=== PATIENT | female | born 1990 | race Caucasian/White ===

== ENCOUNTER 2023-02-11 10:48 | Outpatient (CLI) | payer BC, SELFPAY | END 2023-02-11 10:49 | disposition home or self-care (01) | LOC: LONREF 10:49 | PROVIDERS: PCP Nurse Practitioner Family; Visit Provider Nurse Practitioner Family | DX: Z00.00 Encounter for general adult medical examination without abnormal findings (principal); R53.82 Chronic fatigue, unspecified; Z13.6 Encounter for screening for cardiovascular disorders | CPT/HCPCS: 80061 ==

== ENCOUNTER 2023-08-06 21:51 | Emergency (ER) | payer BC, SELFPAY ==
[2023-08-06 21:54] VITALS: BP 151/94; PULSE 111; RESP 18; TEMP 37.2; O2SAT 100; BMI 31.6
[2023-08-06 22:03] VITALS: O2SAT 100
--- NOTE | 2023-08-06 22:30 | ED_ITS ---
HPI - General Adult General Chief complaint: Fever Stated complaint: Fever, Chest pain Time Seen by Provider: 08/06/23 22:23 History of Present Illness HPI narrative: Patient is a 33-year-old woman who comes in today with 2 day history of nonproductive cough general malaise and body aches. She also has pharyngitis. Her kids have croup. Patient has oxygen saturation of 100%. She has no chest pain shortness a breath orthopnea or PND. No other significant symptoms are noted. Related Data Home Medications Medication Instructions Recorded Confirmed nitrofurantoin 1 cap PO BID 02/11/23 02/11/23 monohydrate/macrocrystals 100 mg capsule Previous Rx's Medication Instructions Recorded sumatriptan succinate 100 mg See Rx Instructions PO .COMPLEX #9 02/11/23 tablet (Imitrex) tabs valacyclovir 1 gram tablet 2,000 mg (2 x 1 gram) PO BID 1 day 02/11/23 (Valtrex) #12 tabs penicillin V potassium 500 mg 1,000 mg (2 x 500 mg) PO BID #20 04/13/23 tablet tabs Allergies Allergy/AdvReac Type Severity Reaction Status Date / Time No Known Allergies Allergy Verified 02/11/23 10:11 Review of Systems Status of ROS: Reports: 10 or more systems reviewed and unremarkable except as noted in History and below [facility] Medical History Screening for lipid disorders ?Z13.220 - Encounter for screening for lipoid disorders (ICD-10) History of retained placenta (2017) ?Z87.59 - Personal history of other complications of , childbirth and the puerperium (ICD-10) History of anemia (2017) ?Z86.2 - Personal history of diseases of the blood and blood-forming organs and certain disorders involving the immune mechanism (ICD-10) ?Z87.59 - Personal history of other complications of , childbirth and the puerperium (ICD-10) History of blood transfusion (2017) ?Z92.89 - Personal history of other medical treatment (ICD-10) Recurrent oral herpes simplex ?B00.2 - Herpesviral gingivostomatitis and pharyngotonsillitis (ICD-10) Surgical History History of dilation and curettage (08/24/16) ?Z98.890 - Other specified postprocedural states (ICD-10) History of appendectomy (2007) ?Z90.49 - Acquired absence of other specified parts of digestive tract (ICD- 10) Family History Grandmother Atrial fibrillation Aunt Breast cancer Maternal Grandmother Cataract Diabetes High blood pressure Uncle Diabetes Maternal Grandfather Prostate cancer Other Heart disease Thyroid disease Social History Narrative: What is your current living situation?: I presently have a place to live Problems where you live: no known problems In the past 12 months, utilities in danger of being shut off: no In past 12 months, lack of transportation kept you from medical appts, meetings, work, or getting things needed for daily living: no In the past 12 mos, have been you worried that your food would run out before you had money to buy more?: never true In the past 12 mos, the food you bought just didn't last and you didn't have money to buy more?: never true Are you following a diet prescribed by a doctor: No Are you following a special diet: No Do you want help finding or keeping work or a job: I do not need or want help Physical activity type: none Smoking Status: Never smoker How often do you have a drink containing alcohol: monthly or less How many standard drinks containing alcohol do you have on a typical day: 1 or 2 AUDIT-C Alcohol total score: 1 Non-prescribed substance use: denies use Caffeine: Yes Are you now , , , , never or living with a partner: In a typical week, how many times do you talk on the telephone with family, friends, or neighbors: twice per week How often do you get together with friends or relatives?: once per week How often do you attend pentecostal or mosque services?: 4 or more times per year Do you belong to any clubs or organizations such as pentecostal groups unions, fraternal or athletic groups, or school groups?: yes Social isolation score (0-1 are the most socially isolated patients): 4 Within the last year, have you been humiliated or emotionally abused in other ways by your partner or ex-partner: no Within the last year, have you been afraid of your partner or ex-partner: no Within the last year, have you been raped or forced to have any kind of sexual activity by your partner or ex-partner: no Within the last year, have you been kicked, hit, slapped, or otherwise physically hurt by your partner or ex-partner: no HARK total score: 0 How often does anyone, including family, friends and others, physically hurt you : never How often does anyone, including family, friends and others, insult or talk down to you: never How often does anyone, including family, friends and others, threaten you with harm: never How often does anyone, including family, friends and others, scream or curse at you: never Firearms in home: no Do you need help with ADLs: I don't need any help Due to a physical, mental, or emotional condition, do you have difficulty doing errands alone such as visiting a doctor's office or shopping: No Little interest or pleasure in doing things: not at all Feeling down, depressed, or hopeless: not at all Do you think of yourself as: straight/heterosexual Gender Identity: male and female Are you currently sexually active: Yes In the past 12 months, how many sex partners have you had: one What kind of protection do you use against STDs: none Are you using contraception or practicing any form of control: Yes service: No Exam Narrative: Exam Narrative: EXAM GENERAL: Patient appears comfortable and well. EYES: No scleral icterus. ENT: Tympanic membranes and oropharynx normal. THYROID: no thyroid nodules or thyromegaly. LYMPH: No supraclavicular or cervical lymphadenopathy. SKIN: Visible skin seen during exam normal or with benign process only. EXT: No dependent lower extremity pedal edema. HEART: Regular rate and rhythm with no murmurs, rubs, or gallops. LUNGS: Clear to auscultation bilaterally with no crackles or wheezes. ABD: Soft, non tender, non distended. PSYCH: Good eye contact, speech is not pressured. Const: Vital Signs, click to edit/add: Vital Signs - 24 hr 08/06/23 21:54 08/06/23 22:03 Temperature 99.0 F Pulse Rate [Left P ulse Oximeter] 111 H Respiratory Rate 18 Blood Pressure [Ri ght Upper Arm] 151/94 H Pulse Oximetry 100 100 Oxygen Delivery Me thod Room Air Room Air Course Vital Signs Vital signs: Initial Vital Signs Temperature 99.0 F 08/06/23 21:54 Temperature Source Temporal Artery Scan 08/06/23 21:54 Pulse Rate 111 H 08/06/23 21:54 Pulse Rhythm Regular 08/06/23 21:54 Respiratory Rate 18 08/06/23 21:54 Blood Pressure 151/94 H 08/06/23 21:54 Blood Pressure Mean 113 H 08/06/23 21:54 Blood Pressure Position Sitting 08/06/23 21:54 Pulse Oximetry 100 08/06/23 21:54 Oxygen Delivery Method Room Air 08/06/23 21:54 Vital Signs Temperature 99.0 F 08/06/23 21:54 Pulse Rate 111 H 08/06/23 21:54 Respiratory Rate 18 08/06/23 21:54 Blood Pressure 151/94 H 08/06/23 21:54 Pulse Oximetry 100 08/06/23 21:54 Oxygen Delivery Method Room Air 08/06/23 21:54 Temperature 99.0 F 08/06/23 21:54 Pulse Rate 111 H 08/06/23 21:54 Respiratory Rate 18 08/06/23 21:54 Blood Pressure 151/94 H 08/06/23 21:54 Pulse Oximetry 100 08/06/23 22:03 Oxygen Delivery Method Room Air 08/06/23 22:03 Medical Decision Making [facility] Narrative Medical decision making narrative: Patient is a 33-year-old woman who presents with cough and congestion. Rapid strep in viral swabs are pending. She has a normal exam. This time reassurance is offered and likely etiology viral versus strep throat. Will contact her with her results. Otherwise will follow Tylenol Motrin rest and fluids. Differential Diagnosis Differential Diagnosis: Viral syndrome strep throat pneumonia Discharge Plan Discharge Clinical Impression: Acute viral syndrome Patient Disposition: Home, Self-Care Condition: Stable Instructions: Viral Syndrome (ED) Additional Instructions: Tylenol Motrin Rest Fluids Will contact you based on your lab testing. Activity Level: No Restrictions Discharge Diet: Regular Prescriptions: No Action nitrofurantoin monohyd/m-cryst 100 mg capsule 1 cap PO BID sumatriptan succinate [Imitrex] 100 mg tablet See Rx Instructions PO .COMPLEX Qty: 9 0RF Rx Instructions: take 1 tab at onset of headache; if no relief, may repeat 1 tab after at least 2 hrs; max = 2 tabs/24 hrs PO valacyclovir [Valtrex] 1 gram tablet 2,000 mg PO BID 1 Days Qty: 12 3RF Rx Instructions: take two tabs in the morning and then two tablets in 12 hours as needed. penicillin V potassium 500 mg tablet 1,000 mg PO BID Qty: 20 0RF Follow Up/Referrals: Cora Bolton CNP [Primary Care Provider] - Stand Alone Forms: MyHealth Info Instructions
[2023-08-06 22:43] LABS: PCR FLU A Negative PCR FLU A (Negative); PCR FLU B Negative PCR FLU B (Negative); PCR RSV Negative PCR RSV (Negative); SARS PCR* Negative SARS-CoV-2 (Negative)
[2023-08-06 23:14] LABS: Strep A DNA Probe* NOT DETECTED (Not Detectd)
--- NOTE | 2023-08-07 00:23 | ED.NURSE ---
called pt, informed them tests were negative for covid/influenza/RSV, and strep.
== END 2023-08-06 22:53 | disposition home or self-care (01) ==
PROVIDERS: Emergency Provider Internal Medicine; PCP Nurse Practitioner Family
DX: B34.9 Viral infection, unspecified (principal)
CPT/HCPCS: 87631; 87651; 99283

== ENCOUNTER 2023-12-29 09:45 | Outpatient (CLI) | payer BC, SELFPAY ==
--- NOTE | 2023-12-29 10:00 | CRLHL7_ITS ---
For Patients: As a result of the Cures Act, medical imaging exams and procedure reports are released immediately into your electronic medical record. You may view this report before your referring provider. If you have questions, please contact your health care provider. Indication: ANOSMIA. HEADACHE Technique: Performed without IV contrast Comparison: None available Findings: Frontal sinuses: Clear. Ethmoid sinuses: Minimal mucosal thickening left ethmoid sinus. Right ethmoid sinus clear. Maxillary sinuses: Clear. The maxillary sinus drainage pathways are patent on both sides. Sphenoid sinuses: Clear, including both sphenoethmoidal recesses. Nasal Cavity: Slight leftward curvature of the nasal septum with left-sided nasal septal spur. Paradoxical turn of the middle turbinates. Tala bullosa right middle turbinate. No polyps. Mild cystic change within the right mandibular condyle at the temporomandibular joint. Normal visualized brain parenchyma. Impression: 1. Mild left ethmoid sinus disease. 2. Left-sided nasal septal spur. 3. Suggestion of possible right TMJ syndrome. Please note that all CT scans at this facility use dose modulation, iterative reconstruction, and/or weight-based dosing when appropriate to reduce radiation dose to as low as reasonably achievable. Dictated by Mateo Herrera MD @ 01/03/2024 9:45:29 AM (Electronically Signed)
== END 2023-12-29 09:46 | disposition home or self-care (01) ==
LOC: CT 09:46
PROVIDERS: PCP Nurse Practitioner Family; Visit Provider Otolaryngology
DX: R43.0 Anosmia (principal); R51.9 Headache, unspecified; J32.2 Chronic ethmoidal sinusitis; J34.89 Other specified disorders of nose and nasal sinuses
CPT/HCPCS: 70486

== ENCOUNTER 2024-01-18 19:48 | Outpatient (CLI) | payer BC, SELFPAY ==
--- NOTE | 2024-02-01 10:13 | W.PM.SLEEP ---
Sleep Study Details Details Interpreting Provider: SCOUT Date of Sleep Study: 01/18/24 Sleep Study Details: STUDY TYPE:? HOME UNATTENDED ? BMI:? 32.4 ORDERING PROVIDER:Kaushal BUTTERFIELD INDICATION:? CONCERN ABOUT SLEEP APNEA ? SLEEP SUMMARY:? 487 MINUTES MONITORED RESPIRATORY SUMMARY:? AHI 2.1 LOW OXYGEN 91 SNORING 21.5% PERIODIC LIMB MOVEMENTS OF SLEEP:? NOT RECORDED CARDIAC:? RANGE 48-102, MEAN 63.2 IMPRESSION:? THIS STUDY DOES NOT DEMONSTRATE CLINICALLY SIGNIFICANT OBSTRUCTIVE SLEEP APNEA. IF SLEEP DISORDER IS STRONGLY SUSPECTED WOULD RECOMMEND AN IN-LAB STUDY RECOMMENDATION: SEE ABOVE
== END 2024-01-18 19:49 | disposition home or self-care (01) ==
LOC: SLEEP 19:48
PROVIDERS: PCP Nurse Practitioner Family; Visit Provider Otolaryngology
DX: G47.30 Sleep apnea, unspecified (principal); G47.10 Hypersomnia, unspecified; R06.83 Snoring
CPT/HCPCS: 95806

== ENCOUNTER 2024-02-10 12:54 | Outpatient (CLI) | payer BC, SELFPAY ==
--- OUTSIDE RECORDS SUMMARY | 2024-02-10 12:57 | XMS_ITS | Clinical Summary ---
Author Organization [employer] [facility] Address [place], [place] [address] Care Team Providers Care Group Counselor Name Role Phone Pcp, No Primary Care Provider Unavailabl e Allergies No known active allergies Medications Medication Sig Dispensed Refills Start Date End Date Status 25/iron fum/folic/dha (-1 ORAL) Take 1 Tab by mouth once daily. Active ferrous sulfate, 65 mg elemental, (IRON) tablet Take 325 mg by mouth once daily with a meal. Active hydroxyzine pamoate (VISTARIL ORAL) Take 1 Tab by mouth at bedtime. 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 Document in Dating section. GA 35w4d based on LMP of 10/29/18 NEXT VISIT ALERTS: Sign up for My Chart, PHQ, GBS, Hgb, PPTL? PLANS & FUTURE APPOINTMENTS: Needs more and orders - OB visits: Through TESTING PLAN: - Testing: Through GROWTH PLAN: - Growth: Next DELIVERY PLAN: - Scheduled delivery: - Preferred delivery location: [facility] [place] PRIMARY DIAGNOSIS: 29 y.o. Estimated Date of Delivery: 08/05/19. [place]/di twins Possible lung sequestration both fetuses MATERNAL H/o H/o PPH due to retained placenta Anxiety BMI 36 Migraines Palpitations LAST GROWTH: 07/05/19 35w4d 06/08/19 31w5d Twin A EFW 2063 grams, percentile: 76. Twin B EFW 2154 grams, percentile: 86 05/24/19 29w4d Twin A EFW 1711 grams, percentile: 89. Twin B EFW 1734 grams, percentile: 91 05/10/19 27w4d Twin A EFW 1320 grams, percentile: 89. Twin B EFW 1292 grams, percentile: 85 04/26/19 25w4d Twin A EFW 961 grams, percentile: 83. Twin B EFW 985 grams, percentile: 88 04/12/19 23w4d Twin A EFW 703 grams, percentile: 84. Twin B EFW 713 grams, percentile: 87 03/15/19 20w4d Twin A EFW 378 grams, percentile: >97. Twin B EFW 365 grams, percentile: 94 01/16/19 11w2d 12/26/18 8w2d ECHO: REFERRING PHYSICIAN/PHONE/LAST UPDATE: Savannah Callahan MD [phone] Primary MD approves scheduling of recommended ultrasounds/testing: Not specified SPECIALISTS/CONSULTS: Cardiology Dr Mian Alicia [facility] [phone] [place] 03/20/19 Include: Specialty MD Clinic Name Phone# [place] and ADD TO TREATMENT TEAM MIKEL signed for [facility]: MATERNAL CARE COORDINATION: CARE COORDINATION: FELT CUTTING MACHINE OPERATOR: GENETICS: 07/05/19 PROCEDURES: 02/24/19: Holter monitor for c/o palpitations Sinus rhythm with mild sinus arrhythmia PERTINENT MEDS: ROUTINE OB: Flu vaccine: Date given: 03/22/19 Tdap vaccine: GIVE BETWEEN 27 AND 36 WEEKS Date given: 06/21/19 ANXIETY/DEPRESSION SCREEN: Initial screen: Date 07/05/19 PHQ-9 score: IRMA-7 score: Previous history of anxiety or depression ? YES ROUTINE LABS: Blood type: A positive Antibody screen: negative Last pap: 07/18/18 NIL Plan for Gestational Diabetes screenin05/10/19: passed Treponema Pallidum: DRAW @ 28 WEEKS Date drawn: RPR negative on 05/10/19 GBS: Hemoglobin: Initial 12/26/18 13.6 28 wk 05/10/19 11.7 36 wk ADDITIONAL PERTINENT LABS: PPTL& DELIVERY SCHEDULING: H&P needed 30 days before delivery Date: PPTL: Yes No Is Medical assistance? No PPTL Permit signed: Date: Scanned date: PLAN OF CARE: Social History Tobacco Use Types Packs/Day Years Used Date Smoking Tobacco: Never Assessed Sex and Gender Information Value Date Recorded Sex Assigned at Not on file Gender Identity Not on file Sexual Orientation Not on file Obstetrics History Para Term AB IAB SAB Ectopic Multiple Livin g Live Births 2 1 1 1 1 Date Outcome GA Total Labor Labor/2nd/3rd Weight Sex Type Anes PTL Vanessa A1 A5 Name Clin Term 39w5 d 3.4 kg (7 lb 8 oz) F Vag Living Last Filed Vital Signs Vital Sign Reading Time Taken Comments Blood Pressure 103/61 07/05/2019 9:59 AM [employer] DEAN Pulse 75 07/05/2019 9:59 AM [employer] Temperature - - Respiratory Rate - - Oxygen Saturation - - Inhaled Oxygen Concentration - - Weight - - Height - - Body Mass Index - - Plan of Treatment Health Maintenance Due Date Last Done Comments Tdap 01/31/2003 Depression screening for age 12+ 2004 HIV for age 15-65 01/31/2007 BMI (ht and wt on same day) for age 18+ 01/31/2010 Hepatitis C screening for ag e 18-79 01/31/2010 Tetanus booster 2012 COVID-19 vaccine series (2022- season) 2024 Influenza for age 9-49 02/06/2024 Pap test for age 21-65 07/25/2024 , 07/25/2021 Pneumococcal series for age 6-64 Aged Out No longer eligible b ased on patient's age to complete this topic Procedures Procedure Name Priority Date/Time Associated Diagnosis Comments HPV THIN PREP Routine 07/25/2021 11:30 AM [employer] from Last 3 Months or Most Recently Relevant to Health Maintenance Results * HPV HIGH RISK (07/25/2021 11:30 AM [employer] DEAN) TYPE 16 Negative Negative 07/29/2021 11:41 AM [employer] DEAN [facility] TYPE 18 Negative Negative 07/29/2021 11:41 AM BASIC SCIENCES DEAN [facility] OTHER HIGH RISK TYPES Negative Negative 07/29/2021 11:41 AM BASIC SCIENCES DEAN [facility] Other (Cervical/Vagina l) 07/25/2021 11:30 AM [employer] DEAN 07/28/2021 8:44 AM [employer] DEAN Narrative [facility] - 07/29/2021 11:41 AM [employer] SCI[employer] DEAN HPV types 16, 18, 31, 33, 35, 39, 45, 51, 52, 56, 58, 59, 66 and 68 DNA were undetectable or below the pre-set threshold. Methodology: Jodi Zahraa 4800 HPV Test Shankar Adan MD MICROBIOLOGY [facility] [address] [place] [address], [place] from Last 3 Months or Most Recently Relevant to Health Maintenance Care Teams Group Counselor Relationship Specialty Start Date End Date Pcp, No . PCP - General 03/10/19
== END 2024-02-10 12:55 | disposition home or self-care (01) ==
PROVIDERS: PCP Nurse Practitioner Family; Visit Provider Nurse Practitioner Family
DX: E78.5 Hyperlipidemia, unspecified (principal)
CPT/HCPCS: 80061

== ENCOUNTER 2024-02-18 07:51 | Day surgery (SDC) | payer BC, SELFPAY ==
[2024-02-18] VITALS (14 sets, daily range): BP systolic 114–148; BP diastolic 86–94; PULSE 59–76; RESP 16–19; TEMP 36.3–36.7; O2SAT 97–99; BMI 32.1
--- OUTSIDE RECORDS SUMMARY | 2024-02-18 07:54 | XMS_ITS | Clinical Summary ---
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 Estimated Date of Delivery: 08/05/19. [place]/di twins Possible lung sequestration both fetuses MATERNAL [...] ECHO: REFERRING PHYSICIAN/PHONE/LAST UPDATE: Savannah Callahan MD [phone] Primary MD approves scheduling of recommended ultrasounds/testing: Not specified SPECIALISTS/CONSULTS: Cardiology Dr Mian Alicia [facility] [phone] 03/20/19 Include: Specialty MD Clinic Name Phone# [place] and ADD TO TREATMENT TEAM MIKEL signed for [facility]: MATERNAL CARE COORDINATION: CARE COORDINATION: OPERATIONS MANAGER STATION: GENETICS: 07/05/19 PROCEDURES: 02/24/19: Holter monitor for [...] Comments Blood Pressure 103/61 07/05/2019 9:59 AM MOTOR SETTER Pulse 75 07/05/2019 9:59 AM MOTOR SETTER Temperature - - Respiratory Rate - - [...] HPV THIN PREP Routine 07/25/2021 11:30 AM MOTOR SETTER from Last 3 Months or Most Recently Relevant to Health Maintenance Results * HPV HIGH RISK (07/25/2021 11:30 AM MOTOR SETTER) TYPE 16 Negative Negative 07/29/2021 11:41 AM MOTOR SETTER [facility] TYPE 18 Negative Negative 07/29/2021 11:41 AM MOTOR SETTER [facility] OTHER HIGH RISK TYPES Negative Negative 07/29/2021 11:41 AM MOTOR SETTER [facility] Other (Cervical/Vagina l) 07/25/2021 11:30 AM MOTOR SETTER 07/28/2021 8:44 AM MOTOR SETTER Narrative [facility] - 07/29/2021 11:41 AM MOTOR SETTER HPV types 16, 18, 31, 33, 35, 39, 45, 51, 52, 56, 58, 59, 66 and 68 DNA were undetectable or below the pre-set threshold. Methodology: [place] Zahraa 4800 HPV Test Shankar Adan MD MICROBIOLOGY [facility] [address] [place] [address], from Last 3 Months or Most Recently Relevant to Health Maintenance Care Teams Engineering Officer Relationship Specialty Start Date End Date Pcp, No . PCP - General 03/10/19
[2024-02-18 08:23] LABS: Ur HCG Qualitative* Negative (Negative)
[2024-02-18] MEDS: LACTATED RINGERS 1000 ML 1,000 ML 100 ML IV (08:35)
[2024-02-18] MEDS: SODIUM CHLORIDE 0.9 % (FLUSH) 10 ML SYRINGE IVF (08:35)
[2024-02-18] MEDS: OXYMETAZOLINE 0.05% NASAL SPRAY 2 SPRAY NOSTRIL-B (08:37)
[2024-02-18] MEDS: COCAINE HCL 4 % 4 ML SOLUTION NOSTRIL-B (09:37)
[2024-02-18] MEDS: AYR SALINE NASAL GEL 1 APPLIC NOSTRIL-B (09:59)
[2024-02-18] MEDS: MUPIROCIN 1 GM PACKET 1 APPLIC TOPICAL (09:59)
[2024-02-18] MEDS: BUPIVACAINE 0.5 %/EPI 1:200K 30 ML INJECTION (10:00)
--- NOTE | 2024-02-18 10:07 | W.PM.ENTPROC ---
Procedure Note Date of procedure: 02/18/24 Procedure: Preoperative diagnosis cryptic tonsillitis nasal headache nasal obstruction right middle turbinate william bullosa deviated septum, bilateral inferior turbinate hypertrophy Postoperative diagnosis same Procedure tonsillectomy, nasal septoplasty, submucous partial resection inferior turbinates bilateral, endoscopic partial resection right middle turbinate william bullosa Under general trach anesthesia patient was prepped and draped in usual fashion. The nose was decongested with cocaine pledgets. The McIvor mouth gag was inserted the tongue retracted forward. The right and left tonsil removed with a combination of needlepoint and bipolar cautery. Bleeding was controlled with suction cautery meticulous hemostasis was achieved. There was no significant adenoid tissue After regarding in gloving attention was turned to the nose. The nose was injected. A right hemitransfixion incision was made left anterior and posterior tunnels were created. A vertical incision was made through the cartilage and a right posterior tunnel created. The posterior deflected portions of septal bone resected a large piece trimmed and returned to intraseptal space. The hemitransfixion was closed with 2 4-0 chromic sutures. A stab incision was made in the anterior of the right inferior turbinate a tunnel created with a Blanco dissector. A very conservative anterior submucous resection was performed with Refugio forceps. The Coblation was used to cauterize this area and also intramurally along the inferior 10%. This was repeated on the left side in identical fashion The remaining procedure was done with the available assistance of a 0 degree endoscope. The right middle turbinate william was incised along its lateral aspect and the bone infractured and then the turbinate crushed with the [place] forceps. Silastic stents were secured with 3-0 nylon. Merocel packing was placed in each side of the nose. The patient procedure well was taken recovery satisfactory condition. Blood loss was less than 20 mL. Surgeon: Charbel Wilcox MD
--- NOTE | 2024-02-18 10:24 | W.ANESCHARGE ---
Anesthesia Charges Start Date/Time Anesthesia Start Date: 02/18/24 Anesthesia Start Time: 09:25 Stop Date/Time Anesthesia Stop Date: 02/18/24 Anesthesia Stop Time: 10:22
[2024-02-18] MEDS: fentaNYL 100 MCG/2 ML inj 50 MCG IVP ×2 (10:37→10:47)
--- NOTE | 2024-02-18 11:07 | W.ANESCHARGE ---
Anesthesia Charges Start Date/Time Anesthesia Start Date: 02/18/24 Anesthesia Start Time: 09:25 Stop Date/Time Anesthesia Stop Date: 02/18/24 Anesthesia Stop Time: 10:22
[2024-02-18] MEDS: ACETAMINOPHEN 160 MG/5 ML CUP 320 MG PO (11:18)
[2024-02-18] MEDS: IBUPROFEN 100 MG/5 ML SUSP 200 MG PO (11:18)
[2024-02-18] MEDS: OXYCODONE 1 MG/ML ORAL SOLN 5 MG PO (11:18)
== END 2024-02-18 12:33 | disposition home or self-care (01) ==
PROVIDERS: PCP Nurse Practitioner Family; Visit Provider Otolaryngology
PROC: (CPT 31231; principal; 2024-02-18 09:15)
DX: J35.01 Chronic tonsillitis (principal); J34.2 Deviated nasal septum; J34.3 Hypertrophy of nasal turbinates; J34.89 Other specified disorders of nose and nasal sinuses; R51.9 Headache, unspecified
CPT/HCPCS: 42826; 30520; 30140; 31240; 00160; 81025; 88304; A9270; J0330; J1100; J2250; J2405; J2704; J3010; J3490; J7120

== ENCOUNTER 2024-04-10 10:15 | Outpatient (CLI) | payer BC, SELFPAY ==
--- OUTSIDE RECORDS SUMMARY | 2024-04-10 10:17 | XMS_ITS | Clinical Summary ---
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 Estimated Date of Delivery: 08/05/19. [place]/di twins Possible lung sequestration both fetuses MATERNAL [...] ECHO: REFERRING PHYSICIAN/PHONE/LAST UPDATE: Savannah Callahan MD [phone] Primary MD approves scheduling of recommended ultrasounds/testing: Not specified SPECIALISTS/CONSULTS: Cardiology Dr Mian Alicia [facility] [phone] 03/20/19 Include: Specialty MD Clinic Name Phone# [place] and ADD TO TREATMENT TEAM MIKEL [facility]: MATERNAL CARE COORDINATION: CARE COORDINATION: AFFILIATE MARKETING MANAGER: GENETICS: 07/05/19 PROCEDURES: 02/24/19: Holter monitor for [...] Comments Blood Pressure 103/61 07/05/2019 9:59 AM PREPARED FOODS SUPERVISOR Pulse 75 07/05/2019 9:59 AM PREPARED FOODS SUPERVISOR Temperature - - Respiratory Rate - - [...] 01/31/2010 Tetanus booster 2012 COVID-19 vaccine series (2023- season) 2024 Influenza for age 9-49 02/06/2024 Pap test for age 21-65 07/25/2024 , 07/25/2021 Pneumococcal series for age 6-64 Aged Out No longer eligible b ased on patient's age to complete this topic Procedures Procedure Name Priority Date/Time Associated Diagnosis Comments HPV HIGH RISK Routine 07/25/2021 11:30 AM PREPARED FOODS SUPERVISOR from Last 3 Months or Most Recently Relevant to Health Maintenance Results * HPV HIGH RISK (07/25/2021 11:30 AM PREPARED FOODS SUPERVISOR) TYPE 16 Negative Negative 07/29/2021 11:41 AM PREPARED FOODS SUPERVISOR [facility] TYPE 18 Negative Negative 07/29/2021 11:41 AM PREPARED FOODS SUPERVISOR [facility] OTHER HIGH RISK TYPES Negative Negative 07/29/2021 11:41 AM PREPARED FOODS SUPERVISOR [facility] Other (Cervical/Vagina l) 07/25/2021 11:30 AM PREPARED FOODS SUPERVISOR 07/28/2021 8:44 AM PREPARED FOODS SUPERVISOR Narrative [facility] - 07/29/2021 11:41 AM PREPARED FOODS SUPERVISOR HPV types 16, 18, 31, 33, 35, 39, 45, 51, 52, 56, 58, 59, 66 and 68 DNA were undetectable or below the pre-set threshold. Methodology: [employer] [address] 4800 HPV Test Shankar Adan MD MICROBIOLOGY [facility] [address] [place] [address], from Last 3 Months or Most Recently Relevant to Health Maintenance Care Teams Pole Shaver Relationship Specialty Start Date End Date Pcp, No . PCP - General 03/10/19
[2024-04-12 08:41] LABS: BILL_GLIADPEPA Y; Gliadin Peptide Ab, IgA <0.72 FLU (0.00-4.99); Tissue Transglutaminase Ab IgA <1.02 FLU (0.00-4.99)
[2024-04-12 17:26] LABS: BILL_GLIADPEPG Y; BILL_TtGG Y; Gliadin Peptide Ab, IgG <0.56 FLU (0.00-4.99); Tissue Transglutaminase Ab IgG <0.82 FLU (0.00-4.99)
== END 2024-04-10 10:16 | disposition home or self-care (01) ==
PROVIDERS: PCP Nurse Practitioner Family; Visit Provider Physician Assistant
DX: K90.0 Celiac disease (principal)
CPT/HCPCS: 36415; 86231; 86258; 86364

== ENCOUNTER 2024-10-18 08:40 | Outpatient (CLI) | payer BC, SELFPAY | END 2024-10-18 08:41 | disposition home or self-care (01) | LOC: NFLDREF 08:41 | PROVIDERS: PCP Nurse Practitioner Family; Visit Provider Registered Nurse | DX: R34 Anuria and oliguria (principal) | CPT/HCPCS: 87086 ==

== ENCOUNTER 2025-03-27 08:45 | Outpatient (CLI) | payer BC, SELFPAY ==
--- NOTE | 2025-03-27 09:15 | CRLHL7_ITS ---
For Patients: As a result of the Cures Act, medical imaging exams and procedure reports are released immediately into your electronic medical record. You may view this report before your referring provider. If you have questions, please contact your health care provider. OB ULTRASOUND LESS THAN 14 WEEKS CLINICAL HISTORY: Dating and viability. TECHNIQUE: Grayscale and color Doppler ultrasound of the uterus and ovaries from a transabdominal and transvaginal approach. Transvaginal ultrasound of the pelvis was performed to better evaluate the genitourinary organs such as the ovaries and/or endometrium. FINDINGS: Imaging: TV. LMP: 01/26/2025. LUCAS by LMP: 11/02/2024. GA: 8 weeks 4 days. CRL: 2.6 cm, 9 weeks 3 days. LUCAS 10/27/2025. FHR: 169 bpm. GEST SAC: 4.0 cm, appears WNL. YOLK SAC: 4.3 mm, appears WNL. RIGHT OV: 3.2 x 2.2 x 2.1 cm. WNL. LEFT OV: 4.8 x 2.3 x 2.7 cm. WNL. CL. IMPRESSION: 1. Single living intrauterine measures 9 weeks 3 days with sonographic due date 10/27/2025. 2. Benign cysts within the left ovary incidentally noted. Mateo Herrera M.D. Diagnostic Radiologist [email or web address] Transcribed: 12:16 pm DW/Dictated by: Mateo Herrera MD @ 03/27/2025 10:41:00 AM (Electronically Signed)
== END 2025-03-27 08:46 | disposition home or self-care (01) ==
LOC: US 08:46
PROVIDERS: PCP Nurse Practitioner Family; Visit Provider Physician Assistant
DX: O34.81 Maternal care for other abnormalities of pelvic organs, first trimester (principal); N83.12 Corpus luteum cyst of left ovary; Z3A.09 9 weeks gestation of pregnancy; Z34.90 Encounter for supervision of normal pregnancy, unspecified, unspecified trimester
CPT/HCPCS: 76817

== ENCOUNTER 2025-03-27 10:23 | Outpatient (CLI) | payer BC, SELFPAY ==
[2025-03-27 16:53] LABS: Chlamydia DNA Amplified* NOT DETECTED (No Detected); GC DNA Amplified* NOT DETECTED (No Detected)
== END 2025-03-27 10:24 | disposition home or self-care (01) ==
PROVIDERS: PCP Nurse Practitioner Family; Visit Provider Physician Assistant
DX: Z34.91 Encounter for supervision of normal pregnancy, unspecified, first trimester (principal)
CPT/HCPCS: 83020; 83021; 85660; 86592; 86703; 86704; 86706; 86762; 86787; 86803; 86850; 87086; 87340; 87491; 87591